=== PATIENT | female | born 1985 | race Hispanic/Latino ===

== ENCOUNTER 2019-05-12 08:39 | Outpatient (CLI) | payer OTHER ==
--- NOTE | 2019-05-12 11:11 | Ultrasound Report ---
BILATERAL GROIN ULTRASOUND / US extremity nonvascular RT INDICATION: lump in groin. Bilateral groin lumps for over one year with no change in size per patien t. COMPARISON: None. FINDINGS: Grayscale and color flow sonographic evaluation of the area of concern demonstrates few sm all, sonographically unremarkable lymph nodes, measuring up to approximately 2 x 0.6 cm on the right, image 3 and up to 1.5 x 0.5 cm on the left, image 35. No tenderness elicited by the panel cutter. No focal suspicious masses or fluid collections. IMPRESSION: No significant sonographic bilateral groin abnormality with few small lymph nodes inciden tally noted, as described. Please correlate. Thank you for the opportunity to participate in this patient's care. Signer Name: Leandro Kingsley Signed: 05/12/2019 11:06 AM Workstation Name: [id number]
--- NOTE | 2019-05-12 11:19 | Ultrasound Report ---
US ABDOMEN LIMITED INDICATION: Abdominal pain/tenderness. Midline abdominal tenderness right above the umbilicus for 5 y ears, off and on. COMPARISON: None. FINDINGS: Limited midline abdominal sonography above the umbilicus in the area of pain demonstrates n o significant abnormality as a focal suspicious mass or fluid collection. Nonaneurysmal imaged abdomi nal aorta. IMPRESSION: No significant sonographic abnormality in the region scanned, as described. Please also c orrelate clinically and may be evaluated further as with cross-sectional imaging, if warranted or sym ptoms persist. Thank you for the opportunity to participate in this patient's care. Signer Name: Leandro Kingsley Signed: 05/12/2019 11:15 AM Workstation Name: [id number]
== END 2019-05-12 08:40 | disposition home or self-care (01) ==
LOC: US 08:39
PROVIDERS: ATTEND Obstetrics & Gynecology
DX: D75.9 Disease of blood and blood-forming organs, unspecified (principal); R10.9 Unspecified abdominal pain; R10.819 Abdominal tenderness, unspecified site; R19.09 Other intra-abdominal and pelvic swelling, mass and lump; E03.9 Hypothyroidism, unspecified
CPT/HCPCS: 76705